=== PATIENT | male | born 1970 | race Caucasian/White ===

== ENCOUNTER 2016-11-14 07:57 | Day surgery (SDC) | payer OTHER ==
[2016-11-10 11:38] VITALS: BMI 25.8
[~2016-11-14 07:57] MED LIST: LEVOFLOXACIN 500 MG PREMIX BAG IVPB ONE
[2016-11-14] MEDS ORDERED: ONDANSETRON 4 MG/2 ML VIAL IVPUSH PRN (09:22)
[2016-11-14] MEDS ORDERED: PROMETHAZINE HCL 25 MG/1 ML VIAL IVPUSH PRN (09:22)
[2016-11-14] MEDS ORDERED: LACTATED RINGERS SOLUTION 1,000 ML IV SCH (09:30)
[2016-11-14] MEDS ORDERED: MIDAZOLAM HCL 2 MG/2 ML SINGLE DOSE VIAL ONE (10:06)
[2016-11-14] MEDS ORDERED: PROPOFOL 20 ML ONE (10:06)
[2016-11-14] MEDS ORDERED: LEVOFLOXACIN 500 MG IVPB 100 ML IVPB ONE (10:08)
[2016-11-14] MEDS ORDERED: LEVOFLOXACIN 500 MG PREMIX BAG IVPB ONE (10:38)
[2016-11-14] MEDS ORDERED: ONDANSETRON 4 MG/2 ML VIAL ONE (11:20)
--- NOTE | 2016-11-14 11:23 | OP ---
Operative Note - Note: Operative Date: 11/14/16 Pre-Operative Diagnosis: right renal stone Operation: right eswl Findings: 7mm right renal stone Post-Operative Diagnosis: Same as Pre-op Anesthesia: General Operative Report Dictated: Yes
--- NOTE | 2016-11-14 11:53 | OP ---
DATE OF OPERATION: 11/14/2016 PREOPERATIVE DIAGNOSIS: Right renal stone. POSTOPERATIVE DIAGNOSIS: Right renal stone. PROCEDURE: Right extracorporeal shock-wave lithotripsy. ATTENDING: Jose Benites MD ANESTHESIA: General. OPERATION: The patient was brought in the operating room, placed in supine position on the operating room table. Ultrasonography and fluoroscopy were performed and a 7-mm right mid pole stone was identified. Extracorporeal shock-wave lithotripsy was commenced once general anesthesia was administered. Levaquin was also given preoperatively for surgical prophylaxis. Then 2500 impulses at 17 joules of power were administered to the stone under real-time ultrasonography and fluoroscopy. There was excellent fragmentation of the stone. No complications were noted. The patient tolerated this procedure very well. JOSE BENITES M.D. [id number]
[2016-11-14 13:11] VITALS: TEMP 98.2
[2016-11-14 13:31] VITALS: BP 117/75; PULSE 60
== END 2016-11-14 13:15 | disposition home or self-care (01) ==
LOC: JASU-SURG 07:57
PROVIDERS: ATTEND Urology
PROC: 0TF3XZZ Fragmentation in Right Kidney Pelvis, External Approach (ICD-10-PCS; principal; 2016-11-14 10:15)
DX: N20.0 Calculus of kidney (principal)
CPT/HCPCS: 94760